=== PATIENT | female | born 1975 | race Caucasian/White ===

== ENCOUNTER 2023-01-01 11:02 | Emergency (ER) | payer MEDICAID ==
[~2023-01-01] VITALS: Ht 167.6 cm; Wt 76.0 kg
[2023-01-01 11:25] VITALS: BP 147/85
[2023-01-01 11:52] LABS: Basophils # (auto) 0.1 10 ^3/uL (0-0.2); Eosinophils # (auto) 0.3 10 ^3/uL (0-0.8); Eosinophils % (auto) 3.5 % (0.0-7.0); Hematocrit 47.3 % (36.0-46.0); Lymphocytes # (auto) 2.3 10 ^3/uL (0.4-5.4); Lymphocytes % (auto) 26.2 % (10.0-50.0); Mean Corpuscular Hemoglobin 31.4 pg (28.0-32.0); Mean Corpuscular Hgb Conc. 33.8 g/dL (32.0-36.0); Monocytes # (auto) 0.8 10 ^3/uL (0-1.3); Monocytes % (auto) 9.2 % (0.0-12.0); Neutrophils # (auto) 5.3 10 ^3/uL (1.6-8.6); Neutrophils % (auto) 60.1 % (37.0-80.0); Nucleated Red Blood Cells % 0.1 %; Red Blood Cells 5.08 10^6/uL (4.0-5.20); Red Cell Distribution Width 14.8 % (11.8-14.3); White Blood Cell 8.8 10^3/uL (4.4-10.8)
[2023-01-01 11:59] LABS: Albumin 3.6 g/dL (3.4-5.0); Calcium 8.7 mg/dL (8.5-10.1); Potassium 4.1 mmol/L (3.5-5.1)
[2023-01-01] MEDS ORDERED: IPRATROPIUM BROM 0.5 MG/2.5ML INH SOL NEB ONE (12:00)
[2023-01-01 12:02] LABS: BUN/Creatinine Ratio 16.9 (10.0-20.0); Bilirubin, Total 0.2 mg/dL (0.2-1.0); Total Protein 7.6 g/dL (6.4-8.2)
[2023-01-01 12:51] LABS: Urine Bacteria NONE SEEN /hpf (None Seen); Urine Blood Negative /uL (Negative); Urine Specific Gravity 1.016 (1.001-1.035); Urine WBC 1 /hpf (0 - 5)
[2023-01-01] MEDS ORDERED: MEBEPOW XX (13:24)
== END 2023-01-01 13:41 | disposition home or self-care (01) ==
LOC: ER 11:02
DX: B82.9 Intestinal parasitism, unspecified (principal); R06.02 Shortness of breath; Z88.6 Allergy status to analgesic agent; Z90.710 Acquired absence of both cervix and uterus
CPT/HCPCS: 36415; 80053; 81001; 83690; 85025; 94640; 99283; J7644

== ENCOUNTER 2023-02-11 12:27 | Emergency (ER) | payer MEDICAID ==
[~2023-02-11] VITALS: Ht 167.6 cm; Wt 71.0 kg
[~2023-02-11 12:27] MED LIST: MEBEPOW XX
[2023-02-11 14:14] LABS: Urine Bacteria FEW /hpf (None Seen); Urine Blood Negative /uL (Negative); Urine Mucus FEW (None Seen); Urine Specific Gravity 1.022 (1.001-1.035); Urine WBC 3 /hpf (0 - 5)
[2023-02-11] MEDS ORDERED: ONDANSETRON HCL 4 MG/2 ML VIAL IV ONE (14:30)
[2023-02-11] MEDS ORDERED: SODIUM CHLORIDE 0.9% 1,000 ML IVB ONE (14:30)
[2023-02-11 15:19] LABS: Albumin 3.9 g/dL (3.4-5.0); Basophils # (auto) 0.1 10 ^3/uL (0-0.2); Basophils % (auto) 0.8 % (0.0-2.0); Calcium 9.2 mg/dL (8.5-10.1); Eosinophils # (auto) 0.3 10 ^3/uL (0-0.8); Eosinophils % (auto) 2.9 % (0.0-7.0); Hemoglobin 15.1 g/dL (12.2-16.2); Lymphocytes # (auto) 2.6 10 ^3/uL (0.4-5.4); Mean Corpuscular Hemoglobin 31.5 pg (28.0-32.0); Mean Corpuscular Hgb Conc. 33.5 g/dL (32.0-36.0); Monocytes # (auto) 0.7 10 ^3/uL (0-1.3); Monocytes % (auto) 8.4 % (0.0-12.0); Neutrophils % (auto) 57.9 % (37.0-80.0); Potassium 4.4 mmol/L (3.5-5.1); Red Blood Cells 4.78 10^6/uL (4.0-5.20); Red Cell Distribution Width 14.6 % (11.8-14.3); White Blood Cell 8.6 10^3/uL (4.4-10.8)
[2023-02-11 15:22] LABS: Bilirubin, Total 0.3 mg/dL (0.2-1.0); Total Protein 6.9 g/dL (6.4-8.2)
[2023-02-11] MEDS ORDERED: KETOROLAC TROMETH 30 MG/ML 1ML VIAL IV ONE (16:15)
[2023-02-11] MEDS ORDERED: TRAM50TA2 PO (16:28)
[2023-02-11 17:45] VITALS: BP 151/75
== END 2023-02-11 17:46 | disposition home or self-care (01) ==
LOC: ER 12:27
DX: R10.9 Unspecified abdominal pain (principal); M79.18 Myalgia, other site; Z90.710 Acquired absence of both cervix and uterus; Z87.442 Personal history of urinary calculi; Z88.6 Allergy status to analgesic agent
CPT/HCPCS: 36415; 74176; 80053; 81001; 83690; 85025; 96361; 96374; 96375; 99285; J1885; J2405; J7030

== ENCOUNTER 2024-04-01 09:37 | Inpatient (IN) | payer MEDICAID ==
[~2024-04-01] VITALS: Ht 167.6 cm; Wt 86.7 kg
[~2024-04-01 09:37] MED LIST changes: +ACET-6 PO; +IBUP-1456 PO; +TRAM50TA2 PO
[2024-04-01 10:10] VITALS: PULSE 76; RESP 16; O2SAT 94
[2024-04-01 10:24] LABS: Urine Bacteria None Seen /hpf (None Seen)
[2024-04-01 10:38] LABS: Urine Blood Negative /uL (Negative); Urine Clarity Clear (Clear); Urine Protein, UAD Negative (Negative); Urine Specific Gravity 1.005 (1.001-1.035); Urine Urobilinogen Normal (Negative); Urine WBC <1 /hpf (0 - 5)
[2024-04-01 10:45] LABS: Urine Color Light Yellow (Yellow)
[2024-04-01 10:47] LABS: Basophils # (auto) 0 10 ^3/uL (0-0.2); Basophils % (auto) 0.7 % (0.0-2.0); Eosinophils # (auto) 0.5 10 ^3/uL (0-0.8); Hematocrit 43.1 % (36.0-46.0); Hemoglobin 14.7 g/dL (12.2-16.2); Lymphocytes # (auto) 1.7 10 ^3/uL (0.4-5.4); Lymphocytes % (auto) 24.3 % (10.0-50.0); Mean Corpuscular Hemoglobin 31.4 pg (28.0-32.0); Mean Corpuscular Volume 92.3 fL (80.0-100.0); Monocytes # (auto) 0.6 10 ^3/uL (0-1.3); Monocytes % (auto) 9.3 % (0.0-12.0); Neutrophils % (auto) 58.7 % (37.0-80.0); Nucleated Red Blood Cells % 0.1 %; Red Blood Cells 4.67 10^6/uL (4.0-5.20); Red Cell Distribution Width 14.4 % (11.8-14.3); White Blood Cell 6.8 10^3/uL (4.4-10.8)
[2024-04-01] MEDS: NITROGLYCERIN 0.4 MG SL TAB SL ONE ×2 (10:58)
[2024-04-01 11:07] LABS: Alanine Aminotransferase 35 U/L (7-40); Albumin 4.4 g/dL (3.2-4.8); Alkaline Phosphatase 100 U/L (46-116); Anion Gap 5 (5-15); Aspartate Aminotransferase 19 U/L (13-40); BUN/Creatinine Ratio 13.1 (10.0-20.0); Bilirubin, Total 0.3 mg/dL (0.2-1.0); Blood Urea Nitrogen 8 mg/dL (9-23); Calcium 9.3 mg/dL (8.5-10.1); Carbon Dioxide 24 mmol/L (20-30); Chloride 110 mmol/L (98-107); Glucose 95 mg/dL (74-106); Potassium 3.9 mmol/L (3.5-5.1); Sodium 139 mmol/L (136-145); Total Protein 6.7 g/dL (5.7-8.2)
[2024-04-01 11:55] LABS: Erythrocyte Sedimentation Rate 10 mm/hr (0-20)
[2024-04-01] MEDS ORDERED: MORPHINE SULFATE INJ 2 MG/ml SYRG IV PRN (13:15)
[2024-04-01] MEDS ORDERED: NITROGLYCERIN 0.4 MG SL TAB SL PRN (13:15)
[2024-04-01] MEDS ORDERED: traMADol HCL 50 MG TAB PO PRN (13:15)
[2024-04-01] MEDS ORDERED: ACETAMINOPHEN 325 MG TAB PO PRN (13:15)
[2024-04-01 13:54] LABS: Triglycerides 72 mg/dL (< 150)
[2024-04-01 13:55] LABS: LDL Cholesterol 60 mg/dL (< 100)
[2024-04-01 13:56] LABS: Cholesterol 126 mg/dL (< 200); HDL Cholesterol 55 mg/dL (40-59)
[2024-04-01] MEDS: SODIUM CHLORIDE 0.9% 1,000 ML IV SCH (14:08)
[2024-04-01] MEDS: ASPirin 325 MG TAB PO ONE (14:08)
[2024-04-01] MEDS: NICOTINE 14 MG/24HR TOPICAL PATCH TD ONE (15:15)
[2024-04-01] MEDS ORDERED: ATOR40TA52 PO (18:38)
[2024-04-01] MEDS ORDERED: LOSA-534 PO (18:38)
[2024-04-01] MEDS ORDERED: DICY20TA PO (18:38)
[2024-04-01] MEDS ORDERED: ASPI81CH59 PO (18:38)
[2024-04-01 18:39] VITALS: BP 135/45; PULSE 67; RESP 19; TEMP 97.5; O2SAT 97
[2024-04-01 19:01] LABS: Amphetamine Screen, Urine Neg (NEGATIVE); Barbiturate Scree,Urine Neg (NEGATIVE); Benzodiazephine Screen, Urine Neg (NEGATIVE); Cannabinoid Screen, Urine Neg (NEGATIVE); Cocaine Screen, Urine Neg (NEGATIVE); Opiate Scree,Urine Neg (NEGATIVE); Phencyclidine Screen, Urine Neg (NEGATIVE)
[2024-04-01] MEDS: MEBENDAZOLE XX SCH (19:08)
[2024-04-01 20:00] VITALS: PULSE 33
[2024-04-01 21:00] VITALS: BP 127/57; PULSE 78; RESP 20; TEMP 97.5; O2SAT 96
[2024-04-01 22:24] VITALS: PULSE 33
[2024-04-02] VITALS (8 sets, daily range): BP systolic 120–145; BP diastolic 61–90; PULSE 66–77; RESP 15–20; TEMP 97.3–98.4; O2SAT 93–96
[2024-04-02 06:18] LABS: Basophils # (auto) 0.1 10 ^3/uL (0-0.2); Basophils % (auto) 0.7 % (0.0-2.0); Eosinophils # (auto) 0.6 10 ^3/uL (0-0.8); Eosinophils % (auto) 8.7 % (0.0-7.0); Hemoglobin 14.1 g/dL (12.2-16.2); Lymphocytes # (auto) 1.8 10 ^3/uL (0.4-5.4); Lymphocytes % (auto) 24.9 % (10.0-50.0); Mean Corpuscular Hemoglobin 31.5 pg (28.0-32.0); Mean Corpuscular Hgb Conc. 33.5 g/dL (32.0-36.0); Mean Corpuscular Volume 94.1 fL (80.0-100.0); Monocytes # (auto) 0.7 10 ^3/uL (0-1.3); Monocytes % (auto) 9.9 % (0.0-12.0); Neutrophils % (auto) 55.8 % (37.0-80.0); Red Blood Cells 4.46 10^6/uL (4.0-5.20); Red Cell Distribution Width 14.2 % (11.8-14.3); White Blood Cell 7.2 10^3/uL (4.4-10.8)
[2024-04-02 06:58] LABS: Alanine Aminotransferase 34 U/L (7-40); Albumin 3.8 g/dL (3.2-4.8); Alkaline Phosphatase 85 U/L (46-116); Anion Gap 2 (5-15); BUN/Creatinine Ratio 16.7 (10.0-20.0); Blood Urea Nitrogen 12 mg/dL (9-23); Calcium 9.2 mg/dL (8.7-10.4); Carbon Dioxide 26 mmol/L (20-30); Chloride 111 mmol/L (98-107); Glucose 103 mg/dL (74-106); Sodium 139 mmol/L (136-145)
[2024-04-02 06:59] LABS: Aspartate Aminotransferase 20 U/L (13-40); Bilirubin, Total 0.3 mg/dL (0.2-1.0)
[2024-04-02] MEDS: ENOXAPARIN SOD 40 MG/0.4 ML SYRINGE SC SCH (10:00)
[2024-04-02] MEDS: NICOTINE 14 MG/24HR TOPICAL PATCH TD SCH (10:00)
[2024-04-02] MEDS: ASPirin 81 mg TAB PO SCH (10:14)
[2024-04-02] MEDS: LOSARTAN POTASSIUM 50 MG TAB PO ONE (17:27)
[2024-04-02] MEDS: ATORVASTATIN 20 MG TAB PO SCH (21:00)
[2024-04-02] MEDS: MELATONIN 5 MG TAB PO ONE (22:55)
[2024-04-02] MEDS ORDERED: DOCUSATE SOD 100 MG CAP PO ONE (23:15)
[2024-04-03 01:00] VITALS: BP 128/59; PULSE 67; RESP 20; TEMP 98.3; O2SAT 95
[2024-04-03 05:00] VITALS: BP 123/63; PULSE 69; RESP 18; TEMP 97.6; O2SAT 93
[2024-04-03 08:15] VITALS: PULSE 75
[2024-04-03 08:49] VITALS: BP 137/64; PULSE 75; RESP 16; TEMP 97.4; O2SAT 94
[2024-04-03] MEDS: LOSARTAN POTASSIUM 50 MG TAB PO SCH (10:37)
[2024-04-03 13:00] VITALS: BP 108/63; PULSE 76; RESP 16; TEMP 97.9; O2SAT 94
[2024-04-03] MEDS ORDERED: MELATONIN 5 MG TAB PO ONE (22:00)
== END 2024-04-03 16:22 | disposition home or self-care (01) | DRG 199 ==
LOC: EDBD 09:37 → ER 09:49 → TELE 13:06 → TELE-CENTR 18:08
PROVIDERS: ADMIT Internal Medicine Geriatric Medicine; ATTEND Internal Medicine Geriatric Medicine
DX: I16.0 Hypertensive urgency (principal); I21.A1 Myocardial infarction type 2; K21.9 Gastro-esophageal reflux disease without esophagitis; E66.01 Morbid (severe) obesity due to excess calories; F15.11 Other stimulant abuse, in remission; I10 Essential (primary) hypertension; J44.9 Chronic obstructive pulmonary disease, unspecified; F17.210 Nicotine dependence, cigarettes, uncomplicated; E78.5 Hyperlipidemia, unspecified; Z68.30 Body mass index [BMI] 30.0-30.9, adult; Z86.73 Personal history of transient ischemic attack (TIA), and cerebral infarction without residual deficits; Z88.6 Allergy status to analgesic agent; Z87.442 Personal history of urinary calculi; Z90.710 Acquired absence of both cervix and uterus
CPT/HCPCS: 36415; 71046; 80053; 80061; 80307; 81001; 83735; 83880; 84443; 84484; 85025; 85379; 85652; 87081; 93005; 93306; G0378

== ENCOUNTER 2024-04-12 10:38 | Inpatient (IN) | payer MEDICAID ==
[~2024-04-12] VITALS: Ht 167.6 cm; Wt 83.9 kg
[~2024-04-12 10:38] MED LIST changes: +ASPI81CH59 PO; +ATOR40TA52 PO; +DICY20TA PO; +LOSA-534 PO
[2024-04-12 11:17] LABS: Basophils # (auto) 0.1 10 ^3/uL (0-0.2); Eosinophils # (auto) 1.1 10 ^3/uL (0-0.8); Eosinophils % (auto) 13.6 % (0.0-7.0); Hematocrit 43.1 % (36.0-46.0); Hemoglobin 14.8 g/dL (12.2-16.2); Lymphocytes # (auto) 2.2 10 ^3/uL (0.4-5.4); Lymphocytes % (auto) 28.6 % (10.0-50.0); Mean Corpuscular Hemoglobin 31.9 pg (28.0-32.0); Mean Corpuscular Hgb Conc. 34.3 g/dL (32.0-36.0); Mean Corpuscular Volume 93.1 fL (80.0-100.0); Monocytes # (auto) 0.6 10 ^3/uL (0-1.3); Monocytes % (auto) 7.6 % (0.0-12.0); Neutrophils # (auto) 3.8 10 ^3/uL (1.6-8.6); Neutrophils % (auto) 49.2 % (37.0-80.0); Red Blood Cells 4.63 10^6/uL (4.0-5.20); Red Cell Distribution Width 14.5 % (11.8-14.3); White Blood Cell 7.7 10^3/uL (4.4-10.8)
[2024-04-12] MEDS: ASPirin 325 MG TAB PO ONE (11:25)
[2024-04-12 11:49] LABS: Alanine Aminotransferase 24 U/L (7-40); Albumin 4.3 g/dL (3.2-4.8); Alkaline Phosphatase 122 U/L (46-116); Anion Gap 7 (5-15); Aspartate Aminotransferase 12 U/L (13-40); BUN/Creatinine Ratio 12.5 (10.0-20.0); Blood Urea Nitrogen 7 mg/dL (9-23); Calcium 9.4 mg/dL (8.5-10.1); Carbon Dioxide 22 mmol/L (20-30); Chloride 111 mmol/L (98-107); Glucose 92 mg/dL (74-106); Sodium 140 mmol/L (136-145)
[2024-04-12 11:50] LABS: Bilirubin, Total 0.4 mg/dL (0.2-1.0); Total Protein 6.7 g/dL (5.7-8.2)
[2024-04-12 12:10] LABS: Urine Bacteria None Seen /hpf (None Seen)
[2024-04-12 12:17] LABS: Urine Blood Negative /uL (Negative); Urine Clarity Clear (Clear); Urine Color Light-Yellow (Yellow); Urine Protein, UAD Negative (Negative); Urine Specific Gravity 1.015 (1.001-1.035); Urine Urobilinogen Normal (Negative); Urine WBC 1 /hpf (0 - 5); Urine pH 6.5 (5.0-9.0)
[2024-04-12 12:42] LABS: Amphetamine Screen, Urine Neg (NEGATIVE); Barbiturate Scree,Urine Neg (NEGATIVE); Benzodiazephine Screen, Urine Neg (NEGATIVE); Cannabinoid Screen, Urine Neg (NEGATIVE); Cocaine Screen, Urine Neg (NEGATIVE); Opiate Scree,Urine Neg (NEGATIVE); Phencyclidine Screen, Urine Neg (NEGATIVE)
[2024-04-12] MEDS ORDERED: IPRATROPIUM BROM 0.5 MG/2.5ML INH SOL NEB PRN (14:30)
[2024-04-12] MEDS ORDERED: MORPHINE SULFATE INJ 2 MG/ml SYRG IV PRN (14:30)
[2024-04-12] MEDS ORDERED: MECLIZINE HCL 25 MG TAB PO PRN (14:30)
[2024-04-12] MEDS ORDERED: ALBUTEROL SULF 2.5 MG/0.5ML(0.5%) NEB SOLN NEB PRN (14:30)
[2024-04-12 14:48] VITALS: BP 138/85; PULSE 68; RESP 14; O2SAT 95
[2024-04-12] MEDS: PANTOPRAZOLE 40 MG/10 ML VIAL INJ IV ONE (15:18)
[2024-04-12] MEDS: NICOTINE 21MG/24 HR TOPICAL PATCH TD ONE (15:19)
[2024-04-12] MEDS: MECLIZINE HCL 25 MG TAB PO ONE (15:19)
[2024-04-12] MEDS: SODIUM CHLORIDE 0.9% 1,000 ML IV SCH (15:20)
[2024-04-12] MEDS: SODIUM CHLORIDE 0.9% 1,000 ML IV ONE (15:20)
[2024-04-12 17:20] VITALS: BP 111/43; PULSE 74; RESP 18; TEMP 97.7; O2SAT 95
[2024-04-12 18:06] VITALS: PULSE 74; RESP 18; O2SAT 95
[2024-04-12 20:00] VITALS: PULSE 79
[2024-04-12 21:00] VITALS: BP 135/75; PULSE 74; RESP 17; TEMP 98.1; O2SAT 97
[2024-04-12] MEDS: ATORVASTATIN 20 MG TAB PO SCH (21:54)
[2024-04-12 22:39] VITALS: PULSE 77; RESP 18; O2SAT 96
[2024-04-13] VITALS (12 sets, daily range): BP systolic 94–142; BP diastolic 42–79; PULSE 71–80; RESP 15–20; TEMP 97.8–98.4; O2SAT 92–100
[2024-04-13 06:20] LABS: Chloride 113 mmol/L (98-107); Potassium 3.9 mmol/L (3.5-5.1); Sodium 141 mmol/L (136-145)
[2024-04-13 06:21] LABS: Anion Gap 5 (5-15); Calcium 8.9 mg/dL (8.5-10.1); Carbon Dioxide 23 mmol/L (20-30)
[2024-04-13 06:22] LABS: Hematocrit 39.8 % (36.0-46.0); Hemoglobin 13.4 g/dL (12.2-16.2); Mean Corpuscular Hemoglobin 31.6 pg (28.0-32.0); Mean Corpuscular Hgb Conc. 33.8 g/dL (32.0-36.0); Mean Corpuscular Volume 93.5 fL (80.0-100.0); Red Blood Cells 4.26 10^6/uL (4.0-5.20); Red Cell Distribution Width 14.8 % (11.8-14.3); White Blood Cell 7.7 10^3/uL (4.4-10.8)
[2024-04-13 06:26] LABS: BUN/Creatinine Ratio 26.3 (10.0-20.0); Blood Urea Nitrogen 15 mg/dL (9-23); Glucose 117 mg/dL (74-106)
[2024-04-13 06:45] LABS: Band Neutrophils % (manual) 0; Basophils % (manual) 0 (0.0-2.0); Blast Cells 0; Metamyelocytes % 0; Myelocytes % 0; Promyelocytes % 0; Reactive Lymphocytes 0
[2024-04-13 07:07] LABS: RPR Non Reactive (Non Reactive)
[2024-04-13 07:34] LABS: Eosinophils % (manual) 14 (0-7); Lymphocytes % (manual) 22 (10.0-50.0); Monocytes % (manual) 10 (0-12); Platelet Estimate Adequate
[2024-04-13] MEDS: PANTOPRAZOLE 40 MG/10 ML VIAL INJ IV SCH (09:09)
[2024-04-13] MEDS: NICOTINE 21MG/24 HR TOPICAL PATCH TD SCH (09:10)
[2024-04-13] MEDS: LOSARTAN POTASSIUM 50 MG TAB PO SCH (09:10)
[2024-04-13] MEDS: ASPirin 81 mg TAB PO SCH (09:11)
[2024-04-13] MEDS: ENOXAPARIN SOD 40 MG/0.4 ML SYRINGE SC SCH (09:11)
[2024-04-13] MEDS ORDERED: ZOFR4T PO (10:57)
[2024-04-13] MEDS ORDERED: OMEP-448 PO (10:57)
[2024-04-13 14:27] LABS: INR 1.01 (0.9-1.15); Prothrombin Time 10.7 sec (9.3-11.8)
[2024-04-13] MEDS: METOPROLOL TARTRATE 25 MG TAB PO ONE (14:27)
[2024-04-13] MEDS: NITROGLYCERIN 0.4 MG SL TAB SL PRN (16:37)
[2024-04-13] MEDS: METOPROLOL TARTRATE 25 MG TAB PO SCH (21:11)
[2024-04-14] VITALS (10 sets, daily range): BP systolic 127–160; BP diastolic 60–92; PULSE 68–78; RESP 16–19; TEMP 97.6–97.9; O2SAT 92–97
[2024-04-14 05:57] LABS: Basophils # (auto) 0.1 10 ^3/uL (0-0.2); Basophils % (auto) 1.4 % (0.0-2.0); Eosinophils # (auto) 1.2 10 ^3/uL (0-0.8); Eosinophils % (auto) 13.9 % (0.0-7.0); Hematocrit 40.9 % (36.0-46.0); Hemoglobin 13.8 g/dL (12.2-16.2); Lymphocytes # (auto) 2.1 10 ^3/uL (0.4-5.4); Lymphocytes % (auto) 25.1 % (10.0-50.0); Mean Corpuscular Hemoglobin 31.6 pg (28.0-32.0); Mean Corpuscular Hgb Conc. 33.8 g/dL (32.0-36.0); Mean Corpuscular Volume 93.6 fL (80.0-100.0); Monocytes # (auto) 0.7 10 ^3/uL (0-1.3); Monocytes % (auto) 8.7 % (0.0-12.0); Neutrophils # (auto) 4.2 10 ^3/uL (1.6-8.6); Neutrophils % (auto) 50.9 % (37.0-80.0); Nucleated Red Blood Cells % 0.1 %; Red Blood Cells 4.37 10^6/uL (4.0-5.20); Red Cell Distribution Width 14.7 % (11.8-14.3); White Blood Cell 8.3 10^3/uL (4.4-10.8)
[2024-04-14 06:22] LABS: Alanine Aminotransferase 17 U/L (7-40); Alkaline Phosphatase 109 U/L (46-116); Anion Gap 5 (5-15); Aspartate Aminotransferase 9 U/L (13-40); Bilirubin, Total 0.5 mg/dL (0.2-1.0); Blood Urea Nitrogen 9 mg/dL (9-23); Calcium 9.1 mg/dL (8.5-10.1); Carbon Dioxide 25 mmol/L (20-30); Chloride 111 mmol/L (98-107); Glucose 103 mg/dL (74-106); Potassium 3.9 mmol/L (3.5-5.1); Sodium 141 mmol/L (136-145); Total Protein 6.1 g/dL (5.7-8.2)
[2024-04-14] MEDS ORDERED: HEPARIN IN NS 1000Units/500mL 1,500 ML ONE (06:54)
[2024-04-14] MEDS ORDERED: IODIXANOL 320MG/ML 100ML BTL IV ONE (06:54)
[2024-04-14] MEDS ORDERED: HEPARIN SODIUM (PORCINE) 5000 UNITS/ML 1ML VIAL ONE (06:57)
[2024-04-14] MEDS ORDERED: VERAPAMIL 2.5MG/ML INJ 2ML VIAL IV ONE (06:57)
[2024-04-14] MEDS ORDERED: ANGIOMAX 250 MG VIAL IV ONE (06:57)
[2024-04-14] MEDS ORDERED: fentaNYL CITRATE 100 MCG/2 ML VL ONE (06:57)
[2024-04-14] MEDS ORDERED: MIDAZOLAM HCL 2MG/2ML 2ml VIAL (1mg/ml) ONE (06:58)
[2024-04-14] MEDS ORDERED: SODIUM CHL 0.9% 0 ML ONE (06:58)
[2024-04-14] MEDS ORDERED: LIDOCAINE 2%HCL (LOCAL ANESTH.) INJ 20ML MDV ONE (07:04)
[2024-04-14] MEDS ORDERED: METO25TA36 PO (15:04)
[2024-04-14] MEDS ORDERED: METOPROLOL TARTRATE 25 MG TAB PO SCH (22:00)
== END 2024-04-14 17:07 | disposition home or self-care (01) | DRG 192 ==
LOC: EDBD 10:38 → ER 10:38 → TELE 14:36 → TELE-CENTR 17:10
PROVIDERS: ADMIT Nurse Practitioner Acute Care; ATTEND Nurse Practitioner Acute Care
PROC: 4A023N7 Measurement of Cardiac Sampling and Pressure, Left Heart, Percutaneous Approach (ICD-10-PCS; principal; 2024-04-14)
PROC: B211YZZ Fluoroscopy of Multiple Coronary Arteries using Other Contrast (ICD-10-PCS; 2024-04-14)
DX: I47.20 Ventricular tachycardia, unspecified (principal); I21.A1 Myocardial infarction type 2; J44.9 Chronic obstructive pulmonary disease, unspecified; I69.354 Hemiplegia and hemiparesis following cerebral infarction affecting left non-dominant side; E66.9 Obesity, unspecified; E78.5 Hyperlipidemia, unspecified; I10 Essential (primary) hypertension; F17.210 Nicotine dependence, cigarettes, uncomplicated; K21.9 Gastro-esophageal reflux disease without esophagitis; Z98.891 History of uterine scar from previous surgery; Z90.710 Acquired absence of both cervix and uterus; Z88.6 Allergy status to analgesic agent; Z87.442 Personal history of urinary calculi; Z68.29 Body mass index [BMI] 29.0-29.9, adult
CPT/HCPCS: 36415; 70450; 71045; 80048; 80053; 80307; 81001; 81025; 83605; 83735; 83880; 84100; 84443; 84484; 85007; 85025; 85027; 85379; 85610; 86592; 93005; 93458; 93886; 96361; 96365; 96374; 97110; 97116; 97163; 97530; 99152; G0378; J2250; J2470; Q9967

== ENCOUNTER 2024-05-14 12:25 | Inpatient (IN) | payer MEDICAID ==
[~2024-05-14] VITALS: Ht 167.6 cm; Wt 86.0 kg
[~2024-05-14 12:25] MED LIST changes: -ACET-6 PO; -MEBEPOW XX; +METO25TA36 PO; +OMEP-448 PO; -TRAM50TA2 PO; +ZOFR4T PO
[2024-05-14 12:41] LABS: Basophils # (auto) 0.1 10 ^3/uL (0-0.2); Eosinophils # (auto) 0.9 10 ^3/uL (0-0.8); Eosinophils % (auto) 11.2 % (0.0-7.0); Hematocrit 47.1 % (36.0-46.0); Hemoglobin 15.7 g/dL (12.2-16.2); Lymphocytes # (auto) 2.4 10 ^3/uL (0.4-5.4); Lymphocytes % (auto) 30.7 % (10.0-50.0); Mean Corpuscular Hemoglobin 31.7 pg (28.0-32.0); Mean Corpuscular Hgb Conc. 33.5 g/dL (32.0-36.0); Mean Corpuscular Volume 94.6 fL (80.0-100.0); Monocytes # (auto) 0.6 10 ^3/uL (0-1.3); Monocytes % (auto) 7.8 % (0.0-12.0); Neutrophils # (auto) 3.9 10 ^3/uL (1.6-8.6); Neutrophils % (auto) 49.3 % (37.0-80.0); Platelet Count (auto) 293 10^3/uL (140-450); Red Blood Cells 4.97 10^6/uL (4.0-5.20); Red Cell Distribution Width 14.5 % (11.8-14.3); White Blood Cell 7.9 10^3/uL (4.4-10.8)
[2024-05-14 12:56] LABS: INR 0.98 (0.9-1.15); Partial Thromboplastin Time 28.1 SEC (24.5-34.5); Prothrombin Time 10.4 sec (9.3-11.8)
[2024-05-14 13:01] LABS: Alanine Aminotransferase 18 U/L (7-40); Albumin 4.7 g/dL (3.2-4.8); Alkaline Phosphatase 111 U/L (46-116); Anion Gap 4 (5-15); Aspartate Aminotransferase 11 U/L (13-40); BUN/Creatinine Ratio 11.6 (10.0-20.0); Blood Urea Nitrogen 8 mg/dL (9-23); Carbon Dioxide 27 mmol/L (20-30); Chloride 108 mmol/L (98-107); Glucose 98 mg/dL (74-106); Potassium 4.2 mmol/L (3.5-5.1); Sodium 139 mmol/L (136-145)
[2024-05-14 13:02] LABS: Bilirubin, Total 0.4 mg/dL (0.2-1.0); Total Protein 7.1 g/dL (5.7-8.2)
[2024-05-14 13:18] VITALS: PULSE 69; RESP 16; O2SAT 95
[2024-05-14] MEDS: ASPirin 325 MG TAB PO ONE (13:44)
[2024-05-14] MEDS: NITROGLYCERIN 0.4 MG SL TAB SL ONE (13:46)
[2024-05-14 14:05] LABS: Urine Bacteria None Seen /hpf (None Seen)
[2024-05-14 14:17] LABS: Urine Blood Negative /uL (Negative); Urine Clarity Clear (Clear); Urine Color Light-Yellow (Yellow); Urine Protein, UAD Negative (Negative); Urine Specific Gravity 1.015 (1.001-1.035); Urine Urobilinogen Normal (Negative); Urine WBC <1 /hpf (0 - 5); Urine pH 5.5 (5.0-9.0)
[2024-05-14] MEDS ORDERED: ATOR40TA52 PO (16:04)
[2024-05-14] MEDS ORDERED: METO25TA5 PO (16:04)
[2024-05-14] MEDS ORDERED: LOSA-534 PO (16:04)
[2024-05-14] MEDS ORDERED: ASPI1TAB20 PO (16:04)
[2024-05-14] MEDS ORDERED: DOCUSATE SOD 100 MG CAP PO PRN (16:15)
[2024-05-14] MEDS ORDERED: HYDROcodone-ACET 5/325MG TAB PO PRN (16:15)
[2024-05-14] MEDS: LACTATED RINGER'S 1,000 ML IV ONE (16:15)
[2024-05-14] MEDS ORDERED: MORPHINE SULFATE INJ 2 MG/ml SYRG IV PRN (16:15)
[2024-05-14] MEDS ORDERED: ONDANSETRON HCL 4 MG/2 ML VIAL IV PRN (16:15)
[2024-05-14] MEDS ORDERED: ACETAMINOPHEN 325 MG TAB PO PRN (16:15)
[2024-05-14] MEDS ORDERED: NITROGLYCERIN 0.4 MG SL TAB SL PRN (16:15)
[2024-05-14] MEDS: SODIUM CHLOR 0.9% PF (SALINE LOCK) 10ML VIAL/SYR IV SCH (21:45)
[2024-05-14] MEDS: METOPROLOL TARTRATE 25 MG TAB PO SCH (22:02)
[2024-05-14 22:36] LABS: Amphetamine Screen, Urine Neg (NEGATIVE); Barbiturate Scree,Urine Neg (NEGATIVE); Benzodiazephine Screen, Urine Neg (NEGATIVE); Cannabinoid Screen, Urine Neg (NEGATIVE); Cocaine Screen, Urine Neg (NEGATIVE); Opiate Scree,Urine Neg (NEGATIVE); Phencyclidine Screen, Urine Neg (NEGATIVE)
[2024-05-15 05:01] LABS: Alanine Aminotransferase 18 U/L (7-40); Albumin 3.9 g/dL (3.2-4.8); Alkaline Phosphatase 93 U/L (46-116); Anion Gap 5 (5-15); Aspartate Aminotransferase 9 U/L (13-40); BUN/Creatinine Ratio 19.4 (10.0-20.0); Basophils # (auto) 0.1 10 ^3/uL (0-0.2); Basophils % (auto) 1.1 % (0.0-2.0); Blood Urea Nitrogen 14 mg/dL (9-23); Calcium 9.1 mg/dL (8.7-10.4); Carbon Dioxide 28 mmol/L (20-30); Chloride 108 mmol/L (98-107); Eosinophils % (auto) 12.8 % (0.0-7.0); Glucose 99 mg/dL (74-106); Hematocrit 43.2 % (36.0-46.0); Hemoglobin 14.6 g/dL (12.2-16.2); Lymphocytes # (auto) 2.2 10 ^3/uL (0.4-5.4); Lymphocytes % (auto) 27.3 % (10.0-50.0); Mean Corpuscular Hemoglobin 32.1 pg (28.0-32.0); Mean Corpuscular Hgb Conc. 33.9 g/dL (32.0-36.0); Mean Corpuscular Volume 94.8 fL (80.0-100.0); Monocytes # (auto) 0.9 10 ^3/uL (0-1.3); Monocytes % (auto) 10.6 % (0.0-12.0); Neutrophils # (auto) 3.9 10 ^3/uL (1.6-8.6); Neutrophils % (auto) 48.2 % (37.0-80.0); Nucleated Red Blood Cells % 0.2 %; Platelet Count (auto) 269 10^3/uL (140-450); Potassium 4.4 mmol/L (3.5-5.1); Red Blood Cells 4.55 10^6/uL (4.0-5.20); Red Cell Distribution Width 14.5 % (11.8-14.3); Sodium 141 mmol/L (136-145); White Blood Cell 8.2 10^3/uL (4.4-10.8)
[2024-05-15 05:02] LABS: Bilirubin, Total 0.5 mg/dL (0.2-1.0); Total Protein 6.3 g/dL (5.7-8.2)
[2024-05-15 08:00] VITALS: PULSE 62; RESP 16; O2SAT 91
[2024-05-15] MEDS: PANTOPRAZOLE 40 MG TAB PO SCH (10:21)
[2024-05-15] MEDS: LOSARTAN POTASSIUM 50 MG TAB PO SCH (10:21)
[2024-05-15] MEDS: ASPirin-EC 81 mg tab PO SCH (10:21)
[2024-05-15] MEDS: ATORVASTATIN 20 MG TAB PO SCH (10:24)
[2024-05-15] MEDS: NICOTINE 7MG/24HR TOPICAL PATCH TD ONE (13:45)
[2024-05-15] MEDS: COLCHICINE 0.6 MG CAP PO ONE (16:19)
[2024-05-15 17:40] VITALS: BP 132/59; PULSE 65; RESP 20; TEMP 97.6; O2SAT 95
[2024-05-15 20:00] VITALS: PULSE 67; RESP 20
[2024-05-15 21:00] VITALS: BP 110/59; PULSE 64; RESP 20; TEMP 98.3; O2SAT 95
[2024-05-15] MEDS: COLCHICINE 0.6 MG CAP PO SCH (22:36)
[2024-05-16 01:00] VITALS: BP 100/44; PULSE 51; RESP 20; TEMP 98.1; O2SAT 93
[2024-05-16] MEDS: MELATONIN 5 MG TAB PO ONE (01:00)
[2024-05-16 05:00] VITALS: BP_SYST 155; BP_SYST 97; BP_DIAS 57; BP_DIAS 66; PULSE 55; RESP 20; TEMP 97.8; O2SAT 99
[2024-05-16 06:42] LABS: Basophils # (auto) 0.1 10 ^3/uL (0-0.2); Basophils % (auto) 1.3 % (0.0-2.0); Eosinophils # (auto) 0.9 10 ^3/uL (0-0.8); Eosinophils % (auto) 11.5 % (0.0-7.0); Hematocrit 43.8 % (36.0-46.0); Hemoglobin 14.7 g/dL (12.2-16.2); Lymphocytes # (auto) 2.6 10 ^3/uL (0.4-5.4); Lymphocytes % (auto) 34.2 % (10.0-50.0); Mean Corpuscular Hemoglobin 31.6 pg (28.0-32.0); Mean Corpuscular Hgb Conc. 33.6 g/dL (32.0-36.0); Mean Corpuscular Volume 94.2 fL (80.0-100.0); Monocytes # (auto) 0.7 10 ^3/uL (0-1.3); Monocytes % (auto) 9.3 % (0.0-12.0); Neutrophils # (auto) 3.4 10 ^3/uL (1.6-8.6); Neutrophils % (auto) 43.7 % (37.0-80.0); Nucleated Red Blood Cells % 0.2 %; Platelet Count (auto) 267 10^3/uL (140-450); Red Blood Cells 4.65 10^6/uL (4.0-5.20); Red Cell Distribution Width 14.4 % (11.8-14.3); White Blood Cell 7.7 10^3/uL (4.4-10.8)
[2024-05-16 06:47] LABS: Alanine Aminotransferase 14 U/L (7-40); Alkaline Phosphatase 90 U/L (46-116); Aspartate Aminotransferase < 8 U/L (13-40); BUN/Creatinine Ratio 13.9 (10.0-20.0); Blood Urea Nitrogen 10 mg/dL (9-23); Calcium 9.2 mg/dL (8.7-10.4); Carbon Dioxide 27 mmol/L (20-30); Cholesterol 146 mg/dL (< 200); Glucose 118 mg/dL (74-106); LDL Cholesterol 81 mg/dL (< 100); Triglycerides 142 mg/dL (< 150)
[2024-05-16 06:48] LABS: Bilirubin, Total 0.3 mg/dL (0.2-1.0); HDL Cholesterol 43 mg/dL (40-59); Total Protein 6.2 g/dL (5.7-8.2)
[2024-05-16 06:49] LABS: Sodium 139 mmol/L (136-145)
[2024-05-16 08:00] VITALS: PULSE 64; PULSE 72; RESP 18
[2024-05-16 09:00] VITALS: BP 114/48; PULSE 62; RESP 18; TEMP 98.4; O2SAT 95
[2024-05-16] MEDS: NICOTINE 7MG/24HR TOPICAL PATCH TD SCH (09:52)
[2024-05-16 12:13] LABS: Anion Gap 2 (5-15); Chloride 110 mmol/L (98-107)
[2024-05-16 12:28] VITALS: BP 136/78; PULSE 63; RESP 20; TEMP 97.4; O2SAT 93
[2024-05-16 16:03] LABS: Erythrocyte Sedimentation Rate 6 mm/hr (0-20)
[2024-05-16] MEDS: MUPIROCIN 2% OINT 15gm or 22gm TOP ONE (16:07)
[2024-05-16] MEDS ORDERED: COLC1CAP PO (16:18)
[2024-05-16 16:55] VITALS: BP 117/63; PULSE 68; RESP 16; TEMP 97.8; O2SAT 96
[2024-05-16] MEDS ORDERED: MELATONIN 5 MG TAB PO ONE (22:00)
[2024-05-18 09:03] LABS: Hepatitis B Surface Antigen Negative (Negative)
[2024-05-18 11:50] LABS: Hepatitis C Antibody Negative (Negative)
== END 2024-05-16 18:51 | disposition home or self-care (01) | DRG 190 ==
LOC: ER 12:25 → TELE 16:16 → TELE-EAST 05-15 17:53
PROVIDERS: ADMIT Internal Medicine; ATTEND Internal Medicine
DX: I24.9 Acute ischemic heart disease, unspecified (principal); I21.A1 Myocardial infarction type 2; E78.5 Hyperlipidemia, unspecified; F17.210 Nicotine dependence, cigarettes, uncomplicated; J44.9 Chronic obstructive pulmonary disease, unspecified; I10 Essential (primary) hypertension; Z82.49 Family history of ischemic heart disease and other diseases of the circulatory system; Z86.73 Personal history of transient ischemic attack (TIA), and cerebral infarction without residual deficits; Z87.442 Personal history of urinary calculi; Z90.710 Acquired absence of both cervix and uterus; Z88.6 Allergy status to analgesic agent
CPT/HCPCS: 36415; 71045; 80053; 80061; 80307; 81001; 84484; 85025; 85610; 85652; 85730; 86141; 86803; 87081; 87340; 93005; G0378

== ENCOUNTER 2024-07-08 17:58 | Emergency (ER) | payer MEDICAID ==
[~2024-07-08] VITALS: Ht 167.6 cm; Wt 185.0 kg
[~2024-07-08 17:58] MED LIST changes: +ASPI1TAB20 PO; -ASPI81CH59 PO; +COLC1CAP PO; -IBUP-1456 PO; -METO25TA36 PO; +METO25TA5 PO
[2024-07-08 19:00] VITALS: PULSE 65; RESP 18; O2SAT 96
[2024-07-08 19:25] LABS: Basophils # (auto) 0.1 10 ^3/uL (0-0.2); Basophils % (auto) 0.6 % (0.0-2.0); Eosinophils # (auto) 0.4 10 ^3/uL (0-0.8); Eosinophils % (auto) 4.5 % (0.0-7.0); Hematocrit 44.7 % (36.0-46.0); Lymphocytes # (auto) 2.9 10 ^3/uL (0.4-5.4); Lymphocytes % (auto) 33.6 % (10.0-50.0); Mean Corpuscular Hemoglobin 31.4 pg (28.0-32.0); Mean Corpuscular Hgb Conc. 33.7 g/dL (32.0-36.0); Mean Corpuscular Volume 93.2 fL (80.0-100.0); Monocytes # (auto) 0.7 10 ^3/uL (0-1.3); Monocytes % (auto) 8.4 % (0.0-12.0); Neutrophils # (auto) 4.5 10 ^3/uL (1.6-8.6); Neutrophils % (auto) 52.9 % (37.0-80.0); Nucleated Red Blood Cells % 0.2 %; Platelet Count (auto) 323 10^3/uL (140-450); Red Blood Cells 4.79 10^6/uL (4.0-5.20); Red Cell Distribution Width 14.4 % (11.8-14.3); White Blood Cell 8.5 10^3/uL (4.4-10.8)
[2024-07-08 19:44] LABS: Alanine Aminotransferase 26 U/L (7-40); Albumin 4.4 g/dL (3.2-4.8); Alkaline Phosphatase 117 U/L (46-116); Anion Gap 9 (5-15); Aspartate Aminotransferase 13 U/L (13-40); BUN/Creatinine Ratio 11.1 (10.0-20.0); Blood Urea Nitrogen 7 mg/dL (9-23); Calcium 9.3 mg/dL (8.7-10.4); Carbon Dioxide 23 mmol/L (20-31); Chloride 109 mmol/L (98-107); Creatine Kinase IFCC 72 U/L (34-145); Glucose 95 mg/dL (74-106); Potassium 3.8 mmol/L (3.5-5.1); Sodium 141 mmol/L (136-145)
[2024-07-08 19:45] VITALS: PULSE 62; RESP 16; TEMP 97.6; O2SAT 95
[2024-07-08 19:45] LABS: Bilirubin, Total 0.2 mg/dL (0.2-1.0)
[2024-07-08 22:15] VITALS: BP 112/50; PULSE 66; RESP 14; O2SAT 96
== END 2024-07-08 22:15 | disposition home or self-care (01) ==
LOC: ER 18:00
DX: R53.1 Weakness (principal); R10.2 Pelvic and perineal pain; E78.5 Hyperlipidemia, unspecified; I10 Essential (primary) hypertension; F17.210 Nicotine dependence, cigarettes, uncomplicated; F15.90 Other stimulant use, unspecified, uncomplicated; Z79.899 Other long term (current) drug therapy; Z86.73 Personal history of transient ischemic attack (TIA), and cerebral infarction without residual deficits; Z87.442 Personal history of urinary calculi; Z88.5 Allergy status to narcotic agent; Z88.6 Allergy status to analgesic agent
CPT/HCPCS: 36415; 70450; 80053; 82550; 82962; 84484; 84702; 85025; 93005

== ENCOUNTER 2024-07-25 08:59 | Emergency (ER) | payer MEDICAID ==
[~2024-07-25] VITALS: Ht 167.6 cm; Wt 86.1 kg
[2024-07-25 09:52] LABS: Urine Bacteria FEW /hpf (None Seen); Urine Blood Negative /uL (Negative); Urine Clarity Clear (Clear); Urine Color Light-Yellow (Yellow); Urine Protein, UAD Negative (Negative); Urine Urobilinogen Normal (Negative); Urine WBC 1 /hpf (0 - 5); Urine pH 6.5 (5.0-9.0)
[2024-07-25 10:05] LABS: Basophils # (auto) 0.1 10 ^3/uL (0-0.2); Basophils % (auto) 0.7 % (0.0-2.0); Eosinophils # (auto) 0.3 10 ^3/uL (0-0.8); Eosinophils % (auto) 4.4 % (0.0-7.0); Hematocrit 43.8 % (36.0-46.0); Hemoglobin 14.8 g/dL (12.2-16.2); Lymphocytes # (auto) 2.1 10 ^3/uL (0.4-5.4); Lymphocytes % (auto) 29.3 % (10.0-50.0); Mean Corpuscular Hemoglobin 31.6 pg (28.0-32.0); Mean Corpuscular Hgb Conc. 33.7 g/dL (32.0-36.0); Mean Corpuscular Volume 93.8 fL (80.0-100.0); Monocytes # (auto) 0.5 10 ^3/uL (0-1.3); Monocytes % (auto) 7.4 % (0.0-12.0); Neutrophils # (auto) 4.1 10 ^3/uL (1.6-8.6); Neutrophils % (auto) 58.2 % (37.0-80.0); Nucleated Red Blood Cells % 0.1 %; Platelet Count (auto) 312 10^3/uL (140-450); Red Blood Cells 4.67 10^6/uL (4.0-5.20); Red Cell Distribution Width 14.5 % (11.8-14.3); White Blood Cell 7.1 10^3/uL (4.4-10.8)
[2024-07-25 10:18] LABS: Alanine Aminotransferase 32 U/L (7-40); Albumin 4.3 g/dL (3.2-4.8); Alkaline Phosphatase 97 U/L (46-116); Anion Gap 6 (5-15); Aspartate Aminotransferase 13 U/L (13-40); BUN/Creatinine Ratio 11.8 (10.0-20.0); Bilirubin, Total 0.4 mg/dL (0.2-1.0); Blood Urea Nitrogen 8 mg/dL (9-23); Calcium 9.6 mg/dL (8.7-10.4); Carbon Dioxide 25 mmol/L (20-31); Chloride 108 mmol/L (98-107); Glucose 138 mg/dL (74-106); Potassium 3.9 mmol/L (3.5-5.1); Sodium 139 mmol/L (136-145); Total Protein 6.8 g/dL (5.7-8.2)
[2024-07-25 12:12] VITALS: BP 141/69; PULSE 68; RESP 16; TEMP 98.6; O2SAT 97
== END 2024-07-25 12:18 | disposition home or self-care (01) ==
LOC: ER 08:59
DX: S33.5XXA Sprain of ligaments of lumbar spine, initial encounter (principal); M79.18 Myalgia, other site; M19.90 Unspecified osteoarthritis, unspecified site; F17.210 Nicotine dependence, cigarettes, uncomplicated; I10 Essential (primary) hypertension; F15.10 Other stimulant abuse, uncomplicated; Z79.899 Other long term (current) drug therapy; Z86.73 Personal history of transient ischemic attack (TIA), and cerebral infarction without residual deficits; Z87.442 Personal history of urinary calculi; Z88.5 Allergy status to narcotic agent; Z90.710 Acquired absence of both cervix and uterus; Z32.02 Encounter for pregnancy test, result negative; X58.XXXA Exposure to other specified factors, initial encounter; Y93.89 Activity, other specified; Y92.89 Other specified places as the place of occurrence of the external cause; Y99.8 Other external cause status
CPT/HCPCS: 36415; 72131; 80053; 81001; 81025; 85025

== ENCOUNTER 2024-10-13 11:36 | Emergency (ER) | payer OTHER, MEDICAID ==
[~2024-10-13] VITALS: Ht 167.6 cm; Wt 86.9 kg
--- NOTE | 2024-10-13 11:58 | ED.PDOC ---
General HPI Comments 48 year old female presents to the ED with chief complaint of hematuria. Patient reports that she has been experiencing intermittent and worsening hematuria with associated abdominal pain and difficulty urinating for the past month. Patient relays that she visited her PCP recently and was advised to come to the ED for further evaluation. Patient denies any fever, chills, dysuria, nausea, vomiting, or diarrhea. Chief Complaint: Urinary Time Seen by MD: 11:55 Primary Care Provider: BASIL Reviewed notes: Nurses Notes, Medications, Allergies Allergies: Coded Allergies: Acetaminophen (Verified Allergy, Unknown, 01/01/23) Hydrocodone (Verified Allergy, Unknown, 01/01/23) Home Meds Active Scripts Colchicine (Colchicine) 0.6 Mg Cap, 0.6 MG PO Q12HR for 30 Days, #60 CAP Prov:ALOK MUSE MD 05/16/24 Reported Medications Atorvastatin Calcium (ATORVASTATIN CALCIUM) 40 Mg Tab, 1 TAB PO DAILY, #30 TAB 5 Refills 05/14/24 Losartan Potassium (Losartan Potassium) 50 Mg Tab, 50 MG PO, TAB 05/14/24 Aspirin (Aspir-81) 81 Mg Tab, 81 MG PO, TAB 05/14/24 Metoprolol Tartrate (Metoprolol Tartrate) 25 Mg Tab, 25 MG PO for 30 Days, MG 05/14/24 Ondansetron Odt 4MG Tab (ZOFRAN PO) 4 Mg Tb, 8 MG PO TID PRN for NAUSEA / VOMITING for 20 Days, #60 ODT TAB-DISSOLVE IN MOUTH, THEN SWALLOW 04/13/24 Omeprazole (Omeprazole Dr) 40 Mg Cap, 1 TAB PO DAILY 04/13/24 Dicyclomine Hcl (Dicyclomine Hcl) 20 Mg Tab, 1 TAB PO TID PRN for pain 04/01/24 Information Source: Patient Mode of Arrival: Ambulatory Severity: Moderate Inability to void: Moderate Timing: Months Duration: Intermittent Has not urinated for: Hours Prehospital treatment: None Onset: Spontaneous Symptoms: Hematuria, Other (Difficulty urinating) History of: Kidney stone Location: Abdomen Modifying factors: None associated signs and symptoms: Abdominal Pain, Hematuria, Inability to Void Past Medical History PAST MEDICAL HISTORY: CVA, High Lipids, HTN, Kidney Stones Surgical History: , 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 Family History Family History: Reviewed,noncontributory to illness Family History (Other): [place]'s disease Social History Smoker: Cigarettes Alcohol: Denies ETOH Use Drugs: Methamphetamine Lives In: Home Constitutional: denies: chills, diaphoresis, fatigue, fever, malaise, sweats, weakness, others EENTM: denies: blurred vision, double vision, ear bleeding, ear discharge, ear drainage, ear pain, ear ringing, eye pain, eye redness, hearing loss, mouth pain, mouth swelling, nasal discharge, nose bleeding, nose congestion, nose pain, photophobia, tearing, throat pain, throat swelling, voice changes, others Respiratory: denies: cough, hemoptysis, orthopnea, SOB at rest, shortness of breath, SOB with excertion, stridor, wheezing, others Cardiovascular: denies: chest pain, dizzy spells, diaphoresis, Dyspnea on exertion, edema, irregular heart beat, left arm pain, lightheadedness, palpitations, PND, syncope, others Gastrointestinal: reports: abdominal pain; denies: abdomen distended, blood streaked bowels, constipated, diarrhea, dysphagia, difficulty swallowing, hematemesis, melena, nausea, poor appetite, poor fluid intake, rectal bleeding, rectal pain, vomiting, others Genitourinary: reports: hematuria, others (Difficulty urinating); denies: abnormal vagina bleeding, burning, dyspareunia, dysuria, flank pain, frequency, incontinence, pain, , vagina discharge, urgency Neurological: denies: dizziness, fainting, headache, left sided numbness, left sided weakness, numbness, paresthesia, pre-existing deficit, right sided numbness, right sided weakness, seizure, speech problems, tingling, tremors, weakness, others Musculoskeletal: denies: back pain, gout, joint pain, joint swelling, muscle pain, muscle stiffness, neck pain, others Integumetry: denies: bruises, change in color, change in hair/nails, dryness, laceration, lesions, lumps, rash, wounds, others Allergic/Immunocompromised: denies: Difficulty Healing, Frequent Infections, Hives, Itching, others Hematologic/Lymphatic: denies: anemia, blood clots, easy bleeding, easy bruising, swollen glands, others Endocrine: denies: excessive hunger, excessive sweating, excessive thirst, excessive urination, flushing, intolerance to cold, intolerance to heat, unexplained weight gain, unexplained weight loss, others Psychiatric: denies: anxiety, bipolar disorder, depression, hopeless, panic disorder, schizophrenia, sleepless, suicidal, others All Other Systems: Reviewed and Negative Physical Exam General Appearance: No Apparent Distress, Normal HEENT: Normal ENT Inspection, PERRL/EOMI Neck: Full Range of Motion, Non-Tender, Normal, Normal Inspection Respiratory: Chest Non-Tender, Lungs Clear, No Accessory Muscle Use, No Respiratory Distress, Normal Breath Sounds Cardiovascular: No Edema, No JVD, No Murmur, No Gallop, Normal Peripheral Pulses, Regular Rate/Rhythm Breast Exam: Deferred Gastrointestinal: Guarding, No Organomegaly, No Pulsatile Mass, Normal Bowel Sounds, Soft, Tenderness (Abdominal tenderness) Genitalia: Deferred Pelvic: Deferred Rectal: Deferred Extremities: No calf tenderness, Normal capillary refill, Normal inspection, Normal range of motion, Non-tender, No pedal edema Musculoskeletal : Apperance: Normal Neurologic: 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 Was a procedure done?: No Differential Diagnosis Kidney stone (Female): Pyelonephritis, Urinary obstruction, Urolithiasis Urinary Problem (Female): UTI X-Ray, Labs, Meds, VS Vital Signs Date Time Temp Pulse Resp B/P (MAP) Pulse Ox O2 Delivery O2 Flow Rate FiO2 10/13/24 11:44 97.9 74 20 115/61 (79) 98 Lab Test 10/13/24 12:49 10/13/24 12:30 Range/Units White Blood Count 7.3 4.4-10.8 10^3/uL Red Blood Count 4.85 4.0-5.20 10^6/uL Hemoglobin 15.4 12.2-16.2 g/dL Hematocrit 45.4 36.0-46.0 % Mean Corpuscular Volume 93.6 80.0-100.0 fL Mean Corpuscular Hemoglobin 31.8 28.0-32.0 pg Mean Corpuscular Hemoglobin Concent 33.9 32.0-36.0 g/dL Red Cell Distribution Width 14.6 H 11.8-14.3 % Platelet Count 315 140-450 10^3/uL Mean Platelet Volume 8.1 6.9-10.8 fL Neutrophils (%) (Auto) 60.6 37.0-80.0 % Lymphocytes (%) (Auto) 28.7 10.0-50.0 % Monocytes (%) (Auto) 8.2 0.0-12.0 % Eosinophils (%) (Auto) 1.9 0.0-7.0 % Basophils (%) (Auto) 0.6 0.0-2.0 % Neutrophils # (Auto) 4.4 1.6-8.6 10 ^3/uL Lymphocytes # (Auto) 2.1 0.4-5.4 10 ^3/uL Monocytes # (Auto) 0.6 0-1.3 10 ^3/uL Eosinophils # (Auto) 0.1 0-0.8 10 ^3/uL Basophils # (Auto) 0 0-0.2 10 ^3/uL Nucleated Red Blood Cells 0.1 % Prothrombin Time 10.5 9.3-11.8 sec Prothrombin Time INR 0.99 0.9-1.15 Activated Partial Thromboplast Time 28.4 24.5-34.5 SEC Sodium Level 139 136-145 mmol/L Potassium Level 4.4 3.5-5.1 mmol/L Chloride Level 109 H 98-107 mmol/L Carbon Dioxide Level 23 20-31 mmol/L Anion Gap 7 5-15 Blood Urea Nitrogen 11 9-23 mg/dL Creatinine 0.77 0.550-1.02 mg/dL Glomerular Filtration Rate Calc 95 >90 mL/min BUN/Creatinine Ratio 14.3 10.0-20.0 Serum Glucose 95 74-106 mg/dL Calcium Level 9.9 8.7-10.4 mg/dL Urine Color Yellow Yellow Urine Clarity Clear Clear Urine pH 6.0 5.0-9.0 Urine Specific [place] 1.031 1.001-1.035 Urine Protein Negative Negative Urine Ketones Negative Negative Urine Blood Negative Negative /uL Urine Nitrite Negative Negative Urine Bilirubin Negative Negative Urine Urobilinogen Normal Negative mg/dL Urine Leukocyte Esterase Negative Negative /uL Urine RBC None seen 0 - 4 /hpf Urine WBC 3 0 - 5 /hpf Urine Squamous Epithelial Cells Few <5 /hpf Urine Bacteria None seen None Seen /hpf Urine Yeast (Budding) Occasional None Seen /hpf Urine Glucose 4+ H Normal mg/dL CT Abd/Pel: FINDINGS: Evaluation of the abdomen and pelvis is limited without intravenous contrast. The liver, gallbladder, pancreas, kidneys, adrenal glands, and spleen appear within normal limits. There is no gross evidence of abdominal lymphadenopathy. There is no free fluid or free air. There is a small fat containing umbilical hernia. The stomach grossly appears unremarkable. The small and large bowel loops demonstrate normal caliber and appear within normal limits. The abdominal aorta and IVC appear within normal limits. Bladder is poorly filled limiting evaluation. The uterus is likely surgically absent.. There is no gross evidence of a pelvic mass. There is no free fluid collection. Lung bases are clear. There is no acute osseous abnormality. IMPRESSION: 1. There is no acute process in the abdomen and pelvis. Time of 1ST Reevaluation: 12:55 Reevaluation 1ST: Unchanged Patient Education/Counseling: Diagnosis, Treatment Family Education/Counseling: No Family Present Additional Information I reviewed the following notes from patient's past medical encounters: 07/25/24 for lumbar pain The following tests were ordered, and results were reviewed by me: CBC, BMP, UA, PTPTT, CT Abd/Pel Additional Information was gathered from interviewing the following independent historians: None I reviewed and agreed with the following test results read by other providers: CT Abd/Pel I discussed treatment and results with medical personnel. Departure 1 Departure Time of Disposition: 14:56 Impression: Primary Impression: Hematuria Disposition: 01 HOME / SELF CARE / HOMELESS Condition: Stable Additional Instructions: Thank you for visiting our Emergency Room. I wish you full and complete recovery. Please follow the following instructions: 1. Take your medication bottles with you to EVERY DOCTOR'S VISIT (including your primary doctor). 2. Please follow up with your primary doctor in 2-3 days or sooner if symptoms do not improve. 3. Please read all the papers given to you at the time of the discharge so that you understand your condition better. 4. Please note that the emergency room visits are focused and not necessarily comprehensive. Therefore, it is possible that some occult medical conditions may go undiagnosed in the ER. 5. The emergency room visits are not and should not be thought of as replacement for regular visits with your primary doctor. 6. Therefore, it is absolutely critical that you follows up with your primary doctor on regular basis to make sure you receives a complete and comprehensive care. 7. I recommended the you take the hospital discharge papers to your primary care physician and other doctors' offices with you. 8. Go to your nearest emergency room if you think your condition gets worse or you think your condition is an emergency. Discharged With: Self Critical Care Note Critical Care Time?: No Stability Stability form required: No Heart Score Heart Score: Heart Score Response (Comments) Value History N/A 0 EKG N/A 0 Age N/A 0 Risk Factors N/A 0 Troponin N/A 0 Total 0 I personally scribed for MIGUEL DAVIS MD ([email or web address]) on 10/13/24 at 11:58. Electronically submitted by Kirill Lunsford ([email or web address]). I personally scribed for MIGUEL DAVIS MD ([email or web address]) on 10/13/24 at 14:09. Electronically submitted by Kirill Lunsford ([email or web address]). I personally scribed for MIGUEL DAVIS MD ([email or web address]) on 10/13/24 at 14:10. Electronically submitted by Kirill Lunsford ([email or web address]). MIGUEL DAVIS MD Oct 13, 2024 11:58
--- NOTE | 2024-10-13 12:23 | DVH ---
CT ABDOMEN AND PELVIS WITHOUT CONTRAST CLINICAL HISTORY: hematuria, abd pain TECHNIQUE: Multiple contiguous axial images of the abdomen and pelvis without intravenous contrast. The images were reformatted degenerate coronal and sagittal reconstructions. All CT scans at this medical facility are performed using dose modulation techniques as appropriate t o a performed exam including the following:Automated exposure control was utilized; adjustment of the MA and/or KV according to patient size; and use of iterative reconstruction technique. Radiation Dose Information: CT Dose: CTDI volume is 14.3 mGy. Dose-length product is 761.27 mGy*cm Comparison: CT CT AB PEL WO CON-NO ORAL OR IV on DOS: 02/11/23 FINDINGS: Evaluation of the abdomen and pelvis is limited without intravenous contrast. The liver, gallbladder, pancreas, kidneys, adrenal glands, and spleen appear within normal limits. There is no gross evidence of abdominal lymphadenopathy. There is no free fluid or free air. There is a small fat containing umbilical hernia. The stomach grossly appears unremarkable. The small and large bowel loops demonstrate normal caliber and appear within normal limits. The abdominal aorta and IVC appear within normal limits. Bladder is poorly filled limiting evaluation. The uterus is likely surgically absent.. There is no g ross evidence of a pelvic mass. There is no free fluid collection. Lung bases are clear. There is no acute osseous abnormality. IMPRESSION: 1. There is no acute process in the abdomen and pelvis. HS:Y
[2024-10-13 12:54] LABS: Urine Bacteria None Seen /hpf (None Seen)
[2024-10-13 13:23] LABS: Urine Blood Negative /uL (Negative); Urine Budding Yeast OCCASIONAL /hpf (None Seen); Urine Color Yellow (Yellow); Urine Protein, UAD Negative (Negative); Urine Specific Gravity 1.031 (1.001-1.035); Urine Squamous Epithelial Cell FEW /hpf (<5); Urine Urobilinogen Normal (Negative); Urine WBC 3 /hpf (0 - 5)
[2024-10-13 13:26] LABS: Urine Clarity Clear (Clear)
[2024-10-13 13:30] LABS: Basophils # (auto) 0 10 ^3/uL (0-0.2); Basophils % (auto) 0.6 % (0.0-2.0); Eosinophils # (auto) 0.1 10 ^3/uL (0-0.8); Eosinophils % (auto) 1.9 % (0.0-7.0); Hematocrit 45.4 % (36.0-46.0); Hemoglobin 15.4 g/dL (12.2-16.2); Lymphocytes # (auto) 2.1 10 ^3/uL (0.4-5.4); Lymphocytes % (auto) 28.7 % (10.0-50.0); Mean Corpuscular Hemoglobin 31.8 pg (28.0-32.0); Mean Corpuscular Hgb Conc. 33.9 g/dL (32.0-36.0); Mean Corpuscular Volume 93.6 fL (80.0-100.0); Monocytes # (auto) 0.6 10 ^3/uL (0-1.3); Monocytes % (auto) 8.2 % (0.0-12.0); Neutrophils # (auto) 4.4 10 ^3/uL (1.6-8.6); Neutrophils % (auto) 60.6 % (37.0-80.0); Nucleated Red Blood Cells % 0.1 %; Platelet Count (auto) 315 10^3/uL (140-450); Red Blood Cells 4.85 10^6/uL (4.0-5.20); Red Cell Distribution Width 14.6 % (11.8-14.3); White Blood Cell 7.3 10^3/uL (4.4-10.8)
[2024-10-13 13:34] LABS: Potassium 4.4 mmol/L (3.5-5.1); Sodium 139 mmol/L (136-145)
[2024-10-13 13:35] LABS: Anion Gap 7 (5-15); Carbon Dioxide 23 mmol/L (20-31)
[2024-10-13 13:36] LABS: Calcium 9.9 mg/dL (8.7-10.4)
[2024-10-13 13:41] LABS: BUN/Creatinine Ratio 14.3 (10.0-20.0); Blood Urea Nitrogen 11 mg/dL (9-23); Glucose 95 mg/dL (74-106)
[2024-10-13 13:46] LABS: Chloride 109 mmol/L (98-107); INR 0.99 (0.9-1.15); Partial Thromboplastin Time 28.4 SEC (24.5-34.5); Prothrombin Time 10.5 sec (9.3-11.8)
[2024-10-13 15:12] VITALS: BP 130/66; PULSE 62; RESP 18; O2SAT 98
== END 2024-10-13 15:17 | disposition home or self-care (01) ==
LOC: ER 11:36
DX: R31.9 Hematuria, unspecified (principal); I10 Essential (primary) hypertension; E78.5 Hyperlipidemia, unspecified; F17.210 Nicotine dependence, cigarettes, uncomplicated; F15.90 Other stimulant use, unspecified, uncomplicated; Z86.73 Personal history of transient ischemic attack (TIA), and cerebral infarction without residual deficits; Z90.710 Acquired absence of both cervix and uterus; Z98.890 Other specified postprocedural states; Z88.5 Allergy status to narcotic agent; Z79.899 Other long term (current) drug therapy
CPT/HCPCS: 36415; 74176; 80048; 81001; 85025; 85610; 85730

== ENCOUNTER 2024-12-31 17:08 | Emergency (ER) | payer OTHER, MEDICAID ==
[~2024-12-31] VITALS: Ht 172.7 cm; Wt 90.1 kg
[2024-12-31] MEDS ORDERED: ONDA-180 PO (20:06)
--- NOTE | 2024-12-31 20:09 | ED.PDOC ---
History of Present Illness HPI Comments 49 y.o female presents to the ED via EMS for an evaluation of abdominal pain secondary to a syncopal episode earlier today at home. Patient reports pain was sharp, constant and diffused, went to the bathroom and after is unable to recall events. reports finding patient on the floor, assisted her up but she was confused stating she did not know him. Patient eventually regained her memory upon ED arrival and now her main complaint is her head pain s/p fall. She reports nausea with dry heaving but no vomiting, fever, chills, chest pain or dizziness. Patient does admit to drinking alcohol today at home. 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, Medications, Allergies Allergies: Coded Allergies: Acetaminophen (Verified Allergy, Unknown, 01/01/23) Hydrocodone (Verified Allergy, Unknown, 01/01/23) Home Meds Active Scripts Ondansetron HCl (Ondansetron Hydrochloride) 8 Mg Tab, 8 MG PO Q6HP PRN for 7 Days, #28 TAB Prov:ALETHA CORDOVA MD 12/31/24 Colchicine (Colchicine) 0.6 Mg Cap, 0.6 MG PO Q12HR for 30 Days, #60 CAP Prov:ALOK MUSE MD 05/16/24 Reported Medications Atorvastatin Calcium (ATORVASTATIN CALCIUM) 40 Mg Tab, 1 TAB PO DAILY, #30 TAB 5 Refills 05/14/24 Losartan Potassium (Losartan Potassium) 50 Mg Tab, 50 MG PO, TAB 05/14/24 Aspirin (Aspir-81) 81 Mg Tab, 81 MG PO, TAB 05/14/24 Metoprolol Tartrate (Metoprolol Tartrate) 25 Mg Tab, 25 MG PO for 30 Days, MG 05/14/24 Ondansetron Odt 4MG Tab (ZOFRAN PO) 4 Mg Tb, 8 MG PO TID PRN for NAUSEA / VOMITING for 20 Days, #60 ODT TAB-DISSOLVE IN MOUTH, THEN SWALLOW 04/13/24 Omeprazole (Omeprazole Dr) 40 Mg Cap, 1 TAB PO DAILY 04/13/24 Dicyclomine Hcl (Dicyclomine Hcl) 20 Mg Tab, 1 TAB PO TID PRN for pain 04/01/24 Information Source: Patient Mode of Arrival: EMS Severity: Moderate Timing: Hours Duration: Since onset Past Medical History PAST MEDICAL HISTORY: CVA, High Lipids, HTN, Kidney Stones Surgical History: , Hysterectomy 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 Family History Family History: Reviewed,noncontributory to illness Family History (Other): [place]'s disease Social History Smoker: Cigarettes Alcohol: Denies ETOH Use Drugs: Methamphetamine Lives In: Home Constitutional: denies: chills, diaphoresis, fatigue, fever, malaise, sweats, weakness, others EENTM: denies: blurred vision, double vision, ear bleeding, ear discharge, ear drainage, ear pain, ear ringing, eye pain, eye redness, hearing loss, mouth pain, mouth swelling, nasal discharge, nose bleeding, nose congestion, nose pain, photophobia, tearing, throat pain, throat swelling, voice changes, others Respiratory: denies: cough, hemoptysis, orthopnea, SOB at rest, shortness of breath, SOB with excertion, stridor, wheezing, others Cardiovascular: reports: syncope; denies: chest pain, dizzy spells, diaphoresis, Dyspnea on exertion, edema, irregular heart beat, left arm pain, lightheadedness, palpitations, PND, others Gastrointestinal: reports: abdominal pain, nausea; denies: abdomen distended, blood streaked bowels, constipated, diarrhea, dysphagia, difficulty swallowing, hematemesis, melena, poor appetite, poor fluid intake, rectal bleeding, rectal pain, vomiting, others Genitourinary: denies: abnormal vagina bleeding, burning, dyspareunia, dysuria, flank pain, frequency, hematuria, incontinence, pain, , vagina discharge, urgency, others Neurological: reports: headache; denies: dizziness, fainting, left sided numbness, left sided weakness, numbness, paresthesia, pre-existing deficit, right sided numbness, right sided weakness, seizure, speech problems, tingling, tremors, weakness, others Musculoskeletal: denies: back pain, gout, joint pain, joint swelling, muscle pain, muscle stiffness, neck pain, others Integumetry: denies: bruises, change in color, change in hair/nails, dryness, laceration, lesions, lumps, rash, wounds, others Allergic/Immunocompromised: denies: Difficulty Healing, Frequent Infections, Hives, Itching, others Hematologic/Lymphatic: denies: anemia, blood clots, easy bleeding, easy bruising, swollen glands, others Endocrine: denies: excessive hunger, excessive sweating, excessive thirst, excessive urination, flushing, intolerance to cold, intolerance to heat, unexplained weight gain, unexplained weight loss, others Psychiatric: denies: anxiety, bipolar disorder, depression, hopeless, panic d isorder, schizophrenia, sleepless, suicidal, others All Other Systems: Reviewed and Negative Physical Exam General Appearance: Other (smell of alcohol ) HEENT: Other (tenderness to the posterior scalp ) Neck: Full Range of Motion, Non-Tender, Normal, Normal Inspection Respiratory: Chest Non-Tender, Lungs Clear, No Accessory Muscle Use, No Respiratory Distress, Normal Breath Sounds Cardiovascular: No Edema, No JVD, No Murmur, No Gallop, Normal Peripheral Pulses, Regular Rate/Rhythm Breast Exam: Deferred Gastrointestinal: No Organomegaly, Non Tender, No Pulsatile Mass, Normal Bowel Sounds, Soft Genitalia: Deferred Pelvic: Deferred Rectal: Deferred Extremities: No calf tenderness, Normal capillary refill, Normal inspection, Normal range of motion, Non-tender, No pedal edema Musculoskeletal : Apperance: Normal Neurologic: Alert, blasting contract man II-XII nml as 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 Was a procedure done?: No Differential Dx Considerations may include: ETOH intoxication, Dehydration, Electrolyte imbalance, Toxicity X-Ray, Labs, Meds, VS Vital Signs Date Time Temp Pulse Resp B/P (MAP) Pulse Ox O2 Delivery O2 Flow Rate FiO2 12/31/24 17:10 98.9 81 14 118/78 (91) 100 98.9 Time of 1ST Reevaluation: 20:09 Reevaluation 1ST: Unchanged Patient Education/Counseling: Diagnosis, Treatment, Prognosis Family Education/Counseling: Diagnosis, Treatment, Prognosis Departure 1 Departure Time of Disposition: 20:11 Impression: Primary Impression: Head injury, closed, with concussion Additional Impression: Nausea Disposition: HOME / SELF CARE / HOMELESS Condition: Stable e-Prescriptions Ondansetron HCl (Ondansetron Hydrochloride) 8 Mg Tab 8 MG PO Q6HP PRN for 7 Days, #28 TAB Prov: ALETHA CORDOVA MD 12/31/24 Discharged With: Self, Spouse Critical Care Note Critical Care Time?: No Stability Stability form required: No I personally scribed for ALETHA CORDOVA MD ([email or web address]) on 12/31/24 at 20:09. Electronically submitted by Jaclyn Smith ([facility]). ALETHA CORDOVA MD Dec 31, 2024 20:09
[2024-12-31 20:19] VITALS: BP 133/74; TEMP 98.3
[2024-12-31 20:20] VITALS: PULSE 89; RESP 17; O2SAT 100
== END 2024-12-31 20:21 | disposition home or self-care (01) ==
LOC: EDBD 17:08 → EDUNIT# 17:08 → ER 17:08
DX: S06.0XAA Concussion with loss of consciousness status unknown, initial encounter (principal); I10 Essential (primary) hypertension; F17.210 Nicotine dependence, cigarettes, uncomplicated; Z79.82 Long term (current) use of aspirin; Z79.899 Other long term (current) drug therapy; Z86.73 Personal history of transient ischemic attack (TIA), and cerebral infarction without residual deficits; Z90.710 Acquired absence of both cervix and uterus; Z88.5 Allergy status to narcotic agent; Z98.890 Other specified postprocedural states; W18.39XA Other fall on same level, initial encounter; Y93.89 Activity, other specified; Y92.89 Other specified places as the place of occurrence of the external cause; Y99.8 Other external cause status

== ENCOUNTER 2025-03-22 14:25 | Emergency (ER) | payer OTHER, MEDICAID ==
[~2025-03-22] VITALS: Ht 170.2 cm; Wt 82.7 kg
[~2025-03-22 14:25] MED LIST changes: +ONDA-180 PO
--- NOTE | 2025-03-22 14:45 | ED.PDOC ---
General HPI Comments HPI: Initial Vitals BP: 119/88 HR: 90 RR: 18 O2 Sat: 96% Temp: 97.6F Past Medical history: DM Type I, HTN, HLD, CVA Past Surgical history: Pelvic Reconstruction, Bladder Prolapse surgery, Hyste rectomy, Medications: Jardiance Social History: Denies smoking, ETOH, and drug use. Allergies: NKDA Ksenia: HPI: Poor Historian. 49-year-old female presents to emergency department for pelvic pain with hematuria. This happened after she slipped and fell in the shower yesterday without any head or neck injury. She fell and did that the split and since then she has been having pain and noted some blood with her urine. Is also pain with urination. Patient has history of pelvic reconstruction for bladder prolapse. Denies any other acute symptoms. Patient is allergic to [place]. REVIEW OF SYSTEMS: CONSTITUTIONAL: Denies acute: fever, diaphoresis, chills, generalized weakness. HEAD: Denies acute: headache, photophobia Eyes: Denies acute: Double vision, vision loss, eye pain, eye discharge. EARS: Denies acute: tinnitus, hearing loss, ear discharge, ear pain, THROAT: Denies acute: sore throat, swelling, difficulty swallowing , pain with swallowing, change in voice. NECK: Denies acute: neck pain, neck swelling, stiff neck. HEART: Denies acute : chest pain, palpitations, LUNGS: Denies acute: SOB, wheezing, cough, hemoptysis ABDOMEN: Denies acute: Nausea, Vomiting, diarrhea, melena , hematemesis, hematochezia SKIN: Denies acute: rash, redness, lesions, itchiness. EXTREMITIES: Denies acute: calf pain, numbness, tingling, weakness, denies pain in extremity. Denies acute: Low back pain. Neuro: Denies acute: focal neurological deficit, motor or sensory focal neurological deficit, tremors, seizure like activity, confusion, dizziness, change in mental status, loss of bowel or bladder function, cauda equina like symptoms. : Denies acute: dysuria, , flank pain, increase in urinary frequency. PSYCH: Denies acute: hallucination, suicidal ideation, homicidal ideation. FEMALE: Denies acute: abnormal vaginal bleeding, foul odor, unusual discharge. PHYSICAL EXAM: General: ----moderate----acute distress, awake and alert. Head: normocephalic, atraumatic. Neck: supple, trachea is midline, no swelling. Throat: Normal phonation. Eyes:, no erythema, no purulent discharge, no proptosis, no icterus. Heart: regular rate, regular rhythm, no significant murmur appreciated. Lungs: no apparent respiratory distress, Able to speak in full sentences. No wheezing, no rhonchi, no crackles. No stridors Clear to auscultation bilaterally. Abdomen: Pelvic suprapubic tender to palpation, non distended, soft, no guarding, no rebound, + bowel sounds. Neuro: Awake, Alert, oriented to name, self, situation, follows commands GCS=15. Speech is normal. Skin: no petechia, no purpura, no cyanosis, non-pale, not jaundice. Lower extremities: --no - Pitting edema no deformity, no focal swelling, no calf TTP. Makes eye contact. moves all four extremities. Face: no apparent facial droop. Ambulating in the ED independently. ED COURSE: DISCLAIMER: This medical document was created using an electronic medical record system with voice recognition software and computerized dictation system. Although this document has been carefully reviewed, there might still be some phonetic and typographical errors. Occasional wrong-word or "sound-alike" substitutions may have occurred due to the inherent limitations of voice recognition software. These areas are purely typographical due to imperfections of the software programs and do not reflect any compromise in the patient's medical care. Please read the chart carefully and recognize, using context, where these substitutions have occurred. Chief Complaint: Pelvic Pain Time Seen by MD: 14:44 Primary Care Provider: BASIL Reviewed notes: Medications, Allergies Allergies: Coded Allergies: Acetaminophen (Verified Allergy, Unknown, 01/01/23) Hydrocodone (Verified Allergy, Unknown, 01/01/23) Home Meds Active Scripts Ondansetron HCl (Ondansetron Hydrochloride) 8 Mg Tab, 8 MG PO Q6HP PRN for 7 Days, #28 TAB Prov:ALETHA CORDOVA MD 12/31/24 Colchicine (Colchicine) 0.6 Mg Cap, 0.6 MG PO Q12HR for 30 Days, #60 CAP Prov:ALOK MUSE MD 05/16/24 Reported Medications Atorvastatin Calcium (ATORVASTATIN CALCIUM) 40 Mg Tab, 1 TAB PO DAILY, #30 TAB 5 Refills 05/14/24 Losartan Potassium (Losartan Potassium) 50 Mg Tab, 50 MG PO, TAB 05/14/24 Aspirin (Aspir-81) 81 Mg Tab, 81 MG PO, TAB 05/14/24 Metoprolol Tartrate (Metoprolol Tartrate) 25 Mg Tab, 25 MG PO for 30 Days, MG 05/14/24 Ondansetron Odt 4MG Tab (ZOFRAN PO) 4 Mg Tb, 8 MG PO TID PRN for NAUSEA / VOMITING for 20 Days, #60 ODT TAB-DISSOLVE IN MOUTH, THEN SWALLOW 04/13/24 Omeprazole (Omeprazole Dr) 40 Mg Cap, 1 TAB PO DAILY 04/13/24 Dicyclomine Hcl (Dicyclomine Hcl) 20 Mg Tab, 1 TAB PO TID PRN for pain 04/01/24 Information Source: Patient Mode of Arrival: Ambulatory Was a procedure done? Was a procedure done?: No Differential Diagnosis Kidney stone (Female): Strain, Urinary obstruction, N/A Urinary Problem (Female): PID, Post-op complication, Pyelonephritis, Urinary retention, Urolithiasis, UTI X-Ray, Labs, Meds, VS Vital Signs Date Time Temp Pulse Resp B/P (MAP) Pulse Ox O2 Delivery O2 Flow Rate FiO2 03/22/25 16:36 98.2 83 95 109/59 (76) 95 98.2 03/22/25 14:37 97.6 90 18 119/88 (98) 96 97.6 Lab Test 03/22/25 17:00 03/22/25 15:32 Range/Units Urine Color Light-yellow Yellow Urine Clarity Clear Clear Urine pH 5.0 5.0-9.0 Urine Specific [place] 1.029 1.001-1.035 Urine Protein Negative Negative Urine Ketones Negative Negative Urine Blood Negative Negative /uL Urine Nitrite Negative Negative Urine Bilirubin Negative Negative Urine Urobilinogen Normal Negative mg/dL Urine Leukocyte Esterase Negative Negative /uL Urine RBC 1 0 - 4 /hpf Urine Microscopic WBC < 1 0-5 /HPF Urine Squamous Epithelial Cells Few <5 /hpf Urine Bacteria Few H None Seen /hpf Urine Yeast (Budding) Occasional None Seen /hpf Urine Glucose 4+ H Normal mg/dL White Blood Count 8.0 4.4-10.8 10^3/uL Red Blood Count 5.17 4.0-5.20 10^6/uL Hemoglobin 16.1 12.2-16.2 g/dL Hematocrit 47.4 H 36.0-46.0 % Mean Corpuscular Volume 91.7 80.0-100.0 fL Mean Corpuscular Hemoglobin 31.1 28.0-32.0 pg Mean Corpuscular Hemoglobin Concent 34.0 32.0-36.0 g/dL Red Cell Distribution Width 14.5 H 11.8-14.3 % Platelet Count 275 140-450 10^3/uL Mean Platelet Volume 7.8 6.9-10.8 fL Neutrophils (%) (Auto) 49.7 37.0-80.0 % Lymphocytes (%) (Auto) 36.0 10.0-50.0 % Monocytes (%) (Auto) 9.5 0.0-12.0 % Eosinophils (%) (Auto) 4.3 0.0-7.0 % Basophils (%) (Auto) 0.5 0.0-2.0 % Neutrophils # (Auto) 4.0 1.6-8.6 10 ^3/uL Lymphocytes # (Auto) 2.9 0.4-5.4 10 ^3/uL Monocytes # (Auto) 0.8 0-1.3 10 ^3/uL Eosinophils # (Auto) 0.3 0-0.8 10 ^3/uL Basophils # (Auto) 0 0-0.2 10 ^3/uL Nucleated Red Blood Cells 0.0 % Sodium Level 143 136-145 mmol/L Potassium Level 4.0 3.5-5.1 mmol/L Chloride Level 110 H 98-107 mmol/L Carbon Dioxide Level 25 20-31 mmol/L Anion Gap 8 5-15 Blood Urea Nitrogen 10 9-23 mg/dL Creatinine 0.77 0.550-1.02 mg/dL Glomerular Filtration Rate Calc 94 >90 mL/min BUN/Creatinine Ratio 13.0 10.0-20.0 Serum Glucose 103 74-106 mg/dL Lactic Acid Level 0.9 0.4-2.0 mmol/L Calcium Level 9.3 8.7-10.4 mg/dL Total Bilirubin 0.3 0.2-1.0 mg/dL Aspartate Amino Transferase (AST) 20 <34 U/L Alanine Aminotransferase (ALT) 26 7-40 U/L Alkaline Phosphatase 109 46-116 U/L Total Protein 7.1 5.7-8.2 g/dL Albumin 4.5 3.2-4.8 g/dL Lipase 57 H 12-53 U/L [place] [address] Ph: [phone] DIAGNOSTIC IMAGING Diagnostic Imaging Report : [id number] Signed PATIENT: MACRINA MORGANCCT: [id number] UNIT: [id number] : 1975 LOC: ER ROOM / BED: / AGE / SEX: 49 / F ADM STATUS: REG ER SERVICE 1452 ORDERING PHYSICIAN: SETH ENRIQUEZ DO PROCEDURE(s): ABPL - CT AB PEL WO CON-NO ORAL OR IV REASON: pelvic pain, hematuria, history of pelvic reconstruction ORDER NUMBER(s): [id number], ACCESSION NUMBER(s): [id number] Indication: pelvic pain, hematuria, history of pelvic reconstruction Technique: CT axial images of the abdomen and pelvis are obtained without contrast. Coronal and sagittal reformats were obtained. Radiation Dose Information: CTDI volume is 13.37 mGy. Dose-length product is 772.55 mGy*cm Comparison: CT CT AB PEL WO CON-NO ORAL OR IV on DOS: 10/13/24, CT CT AB PEL WO CON-NO ORAL OR IV on DOS: 02/11/23 FINDINGS: There is limited interpretation of the abdomen and pelvis without administration of intravenous contrast. Lung bases demonstrate no pleural effusion. Bilateral atelectasis. Adrenal glands, spleen, pancreas unremarkable in shape. Liver unremarkable in shape. No CT evidence for cholelithiasis. Bilateral kidneys demonstrate no hydronephrosis, nephrolithiasis. Stomach is partially distended. Small bowel loops are normal in caliber. Colonic diverticular disease. Moderate volume stool in the colon. Normal appendix. Abdominal aortic atherosclerotic disease. Bladder is partially distended. No fr ee pelvic fluid. No inguinal lymphadenopathy. Moderate bilateral sacroiliitis, zgvo-wdgjoxm-vjbt-right. Njsr-vi-olqtczbg thoracolumbar degenerative disc disease. IMPRESSION: .NoCT evidence for obstructive uropathy. Colonic diverticular disease. Atherosclerotic disease. Other findings as described. ATED BY: SORAIDA HENRY MD DICTATED DATE/TIME: 03/22/258 SIGNED BY: SORAIDA HENRY MD SIGNED DATE/TIME: 03/22/258 CC: [place] [address] Ph: [phone] DIAGNOSTIC IMAGING Diagnostic Imaging Report : [id number] Signed PATIENT: MACRINA MORGANCCT: [id number] UNIT: [id number] : 1975 LOC: ER ROOM / BED: / AGE / SEX: 49 / F ADM STATUS: REG ER SERVICE 1456 ORDERING PHYSICIAN: SETH ENRIQUEZ DO PROCEDURE(s): PELUS - PELVIC REASON: Pelvic pain from a fall, hematuria, pelvic reconstruction ORDER NUMBER(s): [id number], ACCESSION NUMBER(s): [id number] INDICATION: Pelvic pain from a fall, hematuria, pelvic reconstruction TECHNIQUE: Ultrasound pelvic. Multiple real-time grayscale transabdominal transvaginal sonographic images along with color and duplex Doppler of the uterus and ovaries were obtained. COMPARISON: None FINDINGS: The uterus surgically removed. The right ovary not visualized. The left ovary not visualized IMPRESSION: 1. Uterus not visualized history of hysterectomy. 2. Right and left ovaries not visualized. 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 She says she has pain medications at home. She also says she has Cipro at home that she has not started using yet and that is not . She was given the Cipro recently. I told her she has a UTI. She said she will start taking her antibiotics at home. Patient declined any pain medications.) Reevaluation 2ND: Improved Patient Education/Counseling: Diagnosis, Treatment Family Education/Counseling: No Family Present Comments Patient presented with the above HPI.--pelvic pain/hematuria---workup was initiated. patient was found with the above mentioned diagnosis. the following medications were ordered: please refer to order lists of meds and tests obtained by myself Dr. Enriquez. Patient ED course and VS have been stabilized. Patient has been reassessed in e ED and remained in a stable condition. Pertinent incidental findings were discussed with the patient and/or family. Patient/family voices understanding and is agreeable with plan. Patient has been observed in the ED adequate length of time to insure improvement/stability. Escalation of care considered: Consideration of escalation to observation or admission Patient refused pain medication because she used to be an addict. Patient has antibiotics at home she has not used yet for UTI. Patient was DISCHARGED home in a stable condition. All the reports of any imaging studies that were ordered by myself were reviewed by myself. Departure 1 Departure Time of Disposition: 18:08 Impression: Primary Impression: Pelvic pain Additional Impressions: UTI (urinary tract infection) Yeast UTI Disposition: HOME / SELF CARE / HOMELESS Condition: Stable Additional Instructions: Additional instructions: You MUST follow-up with your primary care/family doctor in 1 to 2 days. If you are unable to see your primary care/family doctor, please return to our emergency room for re-assessment and re-evaluation in 1 to 2 days. Return to the emergency room here in our facility or to the nearest ER [facility] if your symptoms change or worsen. CONSULTATIONS: you MUST Follow-up for consultation as soon as possible with: -pelvic surgeon. You MUST call the consultants office yourself to make an appointment. You may need to arrange that through your insurance and/or your primary/family doctor. If you are unable to see the is consultant in 1 to 2 days, you must return to our emergency room (or any other ER of your choice) for re-assessment and re- evaluation. Adequate fluid hydration. Start taking your antibiotics at home for UTI. Below is a copy of your radiological report for follow up: [place] [id number] Ph: [phone] DIAGNOSTIC IMAGING Diagnostic Imaging Report : [id number] Signed PATIENT: MACRINA MORGAN ACCT: [id number] UNIT: [id number] : 1975 LOC: ER ROOM / BED: / AGE / SEX: 49 / F ADM STATUS: REG ER SERVICE 1456 ORDERING PHYSICIAN: SETH ENRIQUEZ DO PROCEDURE(s): PELUS - PELVIC REASON: Pelvic pain from a fall, hematuria, pelvic reconstruction ORDER NUMBER(s): [id number], ACCESSION NUMBER(s): [id number] INDICATION: Pelvic pain from a fall, hematuria, pelvic reconstruction TECHNIQUE: Ultrasound pelvic. Multiple real-time grayscale transabdominal transvaginal sonographic images along with color and duplex Doppler of the uterus and ovaries were obtained. COMPARISON: None FINDINGS: The uterus surgically removed. The right ovary not visualized. The left ovary not visualized IMPRESSION: 1. Uterus not visualized history of hysterectomy. 2. Right and left ovaries not visualized. HS:Y ATED BY: CULLEN ESCALERA Jr., DO DICTATED DATE/TIME: 03/22/251536 SIGNED BY: CULLEN ESCALERA Jr., SIGNED DATE/TIME: 03/22/251536 CC: [place] [address] Ph: [phone] DIAGNOSTIC IMAGING Diagnostic Imaging Report : [id number] Signed PATIENT: MACRINA MORGAN ACCT: [id number] UNIT: [id number] : 1975 LOC: ER ROOM / BED: / AGE / SEX: 49 / F ADM STATUS: REG ER SERVICE 1452 ORDERING PHYSICIAN: SETH ENRIQUEZ DO PROCEDURE(s): ABPL - CT AB PEL WO CON-NO ORAL OR IV REASON: pelvic pain, hematuria, history of pelvic reconstruction ORDER NUMBER(s): [id number], ACCESSION NUMBER(s): [id number] Indication: pelvic pain, hematuria, history of pelvic reconstruction Technique: CT axial images of the abdomen and pelvis are obtained without contrast. Coronal and sagittal reformats were obtained. Radiation Dose Information: CTDI volume is 13.37 mGy. Dose-length product is 772.55 mGy*cm Comparison: CT CT AB PEL WO CON-NO ORAL OR IV on DOS: 10/13/24, CT CT AB PEL WO CON-NO ORAL OR IV on DOS: 02/11/23 FINDINGS: There is limited interpretation of the abdomen and pelvis without administration of intravenous contrast. Lung bases demonstrate no pleural effusion. Bilateral atelectasis. Adrenal glands, spleen, pancreas unremarkable in shape. Liver unremarkable in shape. No CT evidence for cholelithiasis. Bilateral kidneys demonstrate no hydronephrosis, nephrolithiasis. Stomach is partially distended. Small bowel loops are normal in caliber. Colonic diverticular disease. Moderate volume stool in the colon. Normal appendix. Abdominal aortic atherosclerotic disease. Bladder is partially distended. No free pelvic fluid. No inguinal lymphadenopathy. Moderate bilateral sacroiliitis, zcfl-bzywxnr-kyeh-right. Oyld-jg-ahaphhbk thoracolumbar degenerative disc disease. IMPRESSION: .NoCT evidence for obstructive uropathy. Colonic diverticular disease. Atherosclerotic disease. Other findings as described. ATED BY: SORAIDA HENRY MD DICTATED DATE/TIME: 03/22/25 1548 SIGNED BY: SORAIDA HENRY MD SIGNED DATE/TIME: 03/22/25 154 CC: Discharged With: Self Critical Care Note Critical Care Time?: No I personally scribed for SETH ENRIQUEZ DO ([email or web address]) on 03/22/25 at 14:45. Electronically submitted by Kirill Lunsford ([email or web address]). I personally scribed for SETH ENRIQUEZ DO ([email or web address]) on 03/22/25 at 16:49. Electronically submitted by Kirill Lunsford ([email or web address]). SETH ENRIQUEZ DO Mar 22, 2025 14:45
--- NOTE | 2025-03-22 15:39 | DVH ---
INDICATION: Pelvic pain from a fall, hematuria, pelvic reconstruction TECHNIQUE: Ultrasound pelvic. Multiple real-time grayscale transabdominal transvaginal sonographic im ages along with color and duplex Doppler of the uterus and ovaries were obtained. COMPARISON: None FINDINGS: The uterus surgically removed. The right ovary not visualized. The left ovary not visualized IMPRESSION: 1. Uterus not visualized history of hysterectomy. 2. Right and left ovaries not visualized. HS:Y
[2025-03-22 15:44] LABS: Basophils # (auto) 0 10 ^3/uL (0-0.2); Basophils % (auto) 0.5 % (0.0-2.0); Eosinophils # (auto) 0.3 10 ^3/uL (0-0.8); Eosinophils % (auto) 4.3 % (0.0-7.0); Hematocrit 47.4 % (36.0-46.0); Hemoglobin 16.1 g/dL (12.2-16.2); Lymphocytes # (auto) 2.9 10 ^3/uL (0.4-5.4); Mean Corpuscular Hemoglobin 31.1 pg (28.0-32.0); Mean Corpuscular Volume 91.7 fL (80.0-100.0); Monocytes # (auto) 0.8 10 ^3/uL (0-1.3); Monocytes % (auto) 9.5 % (0.0-12.0); Neutrophils % (auto) 49.7 % (37.0-80.0); Platelet Count (auto) 275 10^3/uL (140-450); Red Blood Cells 5.17 10^6/uL (4.0-5.20); Red Cell Distribution Width 14.5 % (11.8-14.3)
--- NOTE | 2025-03-22 15:50 | DVH ---
Indication: pelvic pain, hematuria, history of pelvic reconstruction Technique: CT axial images of the abdomen and pelvis are obtained without contrast. Coronal and sagit gokul reformats were obtained. Radiation Dose Information: CTDI volume is 13.37 mGy. Dose-length product is 772.55 mGy*cm Comparison: CT CT AB PEL WO CON-NO ORAL OR IV on DOS: 10/13/24, CT CT AB PEL WO CON-NO ORAL OR IV on D OS: 02/11/23 FINDINGS: There is limited interpretation of the abdomen and pelvis without administration of intravenous contr ast. Lung bases demonstrate no pleural effusion. Bilateral atelectasis. Adrenal glands, spleen, pancreas unremarkable in shape. Liver unremarkable in shape. No CT evidence for cholelithiasis. Bilateral kidneys demonstrate no hydronephrosis, nephrolithiasis. Stomach is partially distended. Small bowel loops are normal in caliber. Colonic diverticular disease. Moderate volume stool in the colon. Normal appendix. Abdominal aortic atherosclerotic disease. Bladder is partially distended. No free pelvic fluid. No in guinal lymphadenopathy. Moderate bilateral sacroiliitis, roop-ohixnwx-xqhx-right. Qodq-pd-nwqlrtiz thoracolumbar degenerative disc disease. IMPRESSION: .NoCT evidence for obstructive uropathy. Colonic diverticular disease. Atherosclerotic disease. Other findings as described.
[2025-03-22 16:01] LABS: Alanine Aminotransferase 26 U/L (7-40); Albumin 4.5 g/dL (3.2-4.8); Alkaline Phosphatase 109 U/L (46-116); Anion Gap 8 (5-15); Aspartate Aminotransferase 20 U/L (<34); Blood Urea Nitrogen 10 mg/dL (9-23); Calcium 9.3 mg/dL (8.7-10.4); Carbon Dioxide 25 mmol/L (20-31); Glucose 103 mg/dL (74-106); Sodium 143 mmol/L (136-145); Total Protein 7.1 g/dL (5.7-8.2)
[2025-03-22 16:02] LABS: Bilirubin, Total 0.3 mg/dL (0.2-1.0); Chloride 110 mmol/L (98-107); Lipase 57 U/L (12-53)
[2025-03-22 16:36] VITALS: BP 109/59; PULSE 83; RESP 95; TEMP 98.2; O2SAT 95
[2025-03-22 17:23] LABS: Urine Bacteria FEW /hpf (None Seen); Urine Blood Negative /uL (Negative); Urine Budding Yeast OCCASIONAL /hpf (None Seen); Urine Clarity Clear (Clear); Urine Color Light-Yellow (Yellow); Urine Protein, UAD Negative (Negative); Urine Specific Gravity 1.029 (1.001-1.035); Urine Squamous Epithelial Cell FEW /hpf (<5); Urine Urobilinogen Normal (Negative); Urine WBC < 1 /HPF (0-5)
[2025-03-22] MEDS ORDERED: FLUCONAZOLE 100 MG TAB PO ONE (18:15)
== END 2025-03-22 20:53 | disposition home or self-care (01) ==
LOC: ER 14:47
DX: B37.49 Other urogenital candidiasis (principal); R10.2 Pelvic and perineal pain; I10 Essential (primary) hypertension; E78.5 Hyperlipidemia, unspecified; E10.9 Type 1 diabetes mellitus without complications; Z79.899 Other long term (current) drug therapy; Z90.710 Acquired absence of both cervix and uterus; Z86.73 Personal history of transient ischemic attack (TIA), and cerebral infarction without residual deficits; Z88.5 Allergy status to narcotic agent
CPT/HCPCS: 36415; 74176; 76830; 76856; 80053; 81001; 83605; 83690; 85025